=== PATIENT | male | born 1955 | race Caucasian/White ===

== ENCOUNTER 2024-05-23 11:30 | Day surgery (SDC) | payer MEDICARE, SELFPAY ==
[2024-05-23] VITALS (10 sets, daily range): BP systolic 138–175; BP diastolic 82–106; PULSE 69–127; RESP 16–18; TEMP 36.2–36.4; O2SAT 92–98; BMI 32.5
[2024-05-23] MEDS: Lactated Ringers 1,000 ML 15 ML IV (11:45)
[2024-05-23 12:28] LABS: Bedside Glucose 115 mg/dL (74-106)
--- NOTE | 2024-05-23 12:41 | PRE.ANES_ITS ---
ASA Classification* ASA Classification ASA Classification: 2 Assessment & Plan Anesthesia* Anesthesia Assessment Anesthesia Assessment: Discussed sedation and/or anesthesia options, risks, benefits, and alternatives with patient/parents/legal guardian/POA. Questions invited. The patient/parents/legal guardian/POA seems to understand and agrees to proceed with anesthesia plan. Reviewed the physical assessment, medical history, allergy history and patient home medications list prior to surgery/procedure/anesthetic and documented any changes. Performed airway and anesthesia risk assessments. Procedural Plan Procedural Plan:: Proceed w/ Anesthesia plan Anesthesia Type Anesthesia Type: General History Source History Obtained from:: Patient and Chart Anesthesia Focused Assessment* Temperature: 97.5 F Pulse Rate: 107 Blood Pressure: 146/97 Respiratory Rate: 16 Pulse Ox: 98 Oxygen Delivery Method: Room Air Airway Assessment Mouth opens: 2 cm Mallampati Score: II Teeth Condition: Caps/Crowns (Cap on Front Incisor Is Tight. Crowns on molars also take) and Missing (Few missing teeth) Neck Range of motion (ROM): Limited ROM Pertinent Findings EKG Pertinent Findings:: Eat April 17, 2024. Sinus tachycardia. Compared to EKG of August 08, 2023 no significant change. Focused Labs Anesthesia Preop lab: CBC CHEMISTRY POC Glucose 115 mg/dL (74-106) H 05/23/24 12:04 COAG Lab additional comments: April 17, 2024 hemoglobin is 14.7. platelets 328. PT is 11.4 INR is 1.0 Potassium is 4.3. Creatinine is 1.34. Globin A1c is 6.8. Pre-Assessment Diagnosis/Proposed Procedure Planned Operative Procedure(s): TURB WITH MITOMYCIN C INSTILLATION INTO BLADDER Anesthesia History Anesthesia History - dipper clock and watch hands: Anesthesia History - dipper clock and watch hands Hx Hospitalization No 05/14/24 12:09 Any Problems With Anesthesia No 05/14/24 12:09 Cholinesterase deficiency No 05/14/24 12:09 You/Your Family Experience No 05/14/24 12:09 fever (hyperthermia) with Relationship Recent Exposure to Contagious No 05/23/24 11:52 Disease Does patient have nerve No 05/14/24 12:09 stimulator Patient instructed to have device shut off --Does patient have Pacemaker No 05/23/24 11:52 or ICD? When Was Last Pacemaker Check QUESTION #4 FULL TEXT: You/Your Family Experience fever (hyperthermia) with Anesthesia Last Oral Intake Last Oral intake: Last Oral Intake NPO since 06:30 05/23/24 11:52 Meds taken in AM with sips of water? Meds patient instructed to take am of surgery Any additional information?: Yes NPO since: 06:30 Meds patient instructed to take am of surgery: Black coffee at 630 PONV PONV - dipper clock and watch hands: PONV - dipper clock and watch hands Female No 05/14/24 12:09 HX of Motion Sickness No 05/14/24 12:09 HX of N/V After Surgery No 05/14/24 12:09 Non-Smoker No 05/14/24 12:09 Duration of Surgery greater Yes 05/14/24 12:09 than 60 minutes Number of Risk Factors 1 05/14/24 12:09 PONV Score Low Risk 05/14/24 12:09 Height & Weight Height & Weight: Anesthesia: Height & Weight Height 5 ft 6 in 05/23/24 11:52 Weight: 91.626 kg 05/23/24 11:52 Body Mass Index (BMI) 32.5 05/23/24 11:52 Respiratory Assessment Respiratory Assessment - dipper clock and watch hands: Respiratory Tract Infection Hx - dipper clock and watch hands Hx Respiratory Tract Infection No 05/14/24 12:09 STOP Sleep Apnea STOP Sleep Apnea - dipper clock and watch hands: STOP Sleep Apnea - dipper clock and watch hands Hx Hypertension Yes: CONTROLLED WITH MED 05/14/24 12:09 Hx Sleep Apnea No 05/14/24 12:09 CPAP BIPAP Do you snore loudly (louder No 05/14/24 12:09 than talking or can be heard Do you often feel tired/ Yes 05/14/24 12:09 fatigued/ sleepy during daytime? Has anyone observed you stop No 05/14/24 12:09 breathing during sleep? STOP Results Positive 05/14/24 12:09 QUESTION #5 FULL TEXT : Do you snore loudly (louder than talking or can be heard through closed doors)? 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 Specify any problems Hx of Preganancy in last 3 N/A 05/14/24 12:09 Months Nurse Filling Out Transfusion DSCHRIBER 05/14/24 12:09 & Questions: Date: 05/14/24 05/14/24 12:09 Time: 12:11 05/14/24 12:09 Patient unable to answer at this time (ie. confused, unrespo /Reproduction History /Reproductive History - dipper clock and watch hands: /Reproductive Hx- dipper clock and watch hands Hx Now Gestational Age (in weeks): EDC: Hx Hx Para Hx Section SAB No 05/14/24 12:09 Active Medications Active Medications: Current Medications Generic Name Dose Route Start Last Admin Trade Name Freq PRN Reason Stop Dose Admin Cefazolin Sodium 2 gm/ Sodium 110 mls @ 150 mls/hr 05/23/24 13:50 Chloride IV 05/23/24 14:33 PREOP ONE Mitomycin 40 mg/ N/A 40 mls @ 2,400 mls/hr 05/23/24 13:50 INSTILLAT 05/23/24 13:51 X1 ONE Lactated Ringer's 1,000 mls @ 15 mls/hr 05/23/24 11:45 05/23/24 11:45 IV 15 mls/hr .Q48H DEVAN Administration PFSH Medical History Wears contact lenses Alcohol use Diabetes Arthritis Bladder disease Easy bruising Smoker Shortness of breath on exertion History of pain when walking History of echocardiogram History of stress test Hypertension Home Medications ?Medication ?Instructions ?Recorded ?Last Taken ?Type atorvastatin 20 mg tablet 20 mg PO QHS 04/11/24 Unknown History guaifenesin 600 mg tablet, 600 mg PO BID PRN congestion 04/11/24 Unknown History extended release 12 hr (Mucinex) lisinopril 20 1 tab PO DAILY 04/11/24 05/22/24 History mg-hydrochlorothiazide 12.5 mg tablet metformin 1,000 mg tablet 1,000 mg PO BID 04/11/24 Unknown History semaglutide 14 mg tablet (Rybelsus) 14 mg PO DAILY 04/11/24 05/12/24 History tamsulosin 0.4 mg capsule 0.4 mg PO QHS 04/11/24 Unknown History ciprofloxacin HCl 500 mg tablet 500 mg PO BID #10 tabs 05/23/24 Unknown Rx (Cipro) ibuprofen 600 mg tablet 600 mg PO Q6H PRN fever or pain 05/23/24 Unknown Rx #20 tabs Allergy/AdvReac Type Severity Reaction Status Date / Time No Known Allergies Allergy Verified 05/23/24 11:51 Surgical History Hx of colonoscopy Social History Smoking Status: Current every day smoker tobacco type: cigarettes Review of Systems (Anesthesia) ROS Narrative System reviewed and no additional complaints, except as documented. Physical Exam Skin General Skin Exam: ecchymosis Neuro oriented x3
--- NOTE | 2024-05-23 12:43 | PCM.HP.STD ---
HPI - General General Date of Service: 05/23/24 Chief Complaint: Large bladder tumor HPI Narrative JUAN CARLOS AMIN, is a 68 M who presents for resection of a large bladder tumor instillation of Mitomycin-C postop [facility] Medical History Wears contact lenses Alcohol use Diabetes Arthritis Bladder disease Easy bruising Smoker Shortness of breath on exertion History of pain when walking History of echocardiogram History of stress test Hypertension Home Medications ?Medication ?Instructions ?Recorded ?Last Taken ?Type atorvastatin 20 mg tablet 20 mg PO QHS 04/11/24 Unknown History guaifenesin 600 mg tablet, 600 mg PO BID PRN congestion 04/11/24 Unknown History extended release 12 hr (Mucinex) lisinopril 20 1 tab PO DAILY 04/11/24 05/22/24 History mg-hydrochlorothiazide 12.5 mg tablet metformin 1,000 mg tablet 1,000 mg PO BID 04/11/24 Unknown History semaglutide 14 mg tablet (Rybelsus) 14 mg PO DAILY 04/11/24 05/12/24 History tamsulosin 0.4 mg capsule 0.4 mg PO QHS 04/11/24 Unknown History Allergy/AdvReac Type Severity Reaction Status Date / Time No Known Allergies Allergy Verified 05/23/24 11:51 Surgical History Hx of colonoscopy Social History Smoking Status: Current every day smoker tobacco type: cigarettes Vital Signs Vital Signs Vital Signs: 05/23/24 11:52 05/23/24 11:52 Temperature 97.5 F L Temperature Source Temporal Pulse Rate 107 H Respiratory Rate 16 Respiratory Pattern Normal Blood Pressure 146/97 H Blood Pressure Mean 113 Blood Pressure Source Monitor Blood Pressure Position Sitting Blood Pressure Location Right Arm Pulse Ox 98 Oxygen Delivery Method Room Air Weight Weight: 91.626 kg Body Mass Index (BMI) 32.5 Results Lab / Micro Data Labs: Laboratory Results - last 24 hr 05/23/24 12:04: POC Glucose 115 H
--- NOTE | 2024-05-23 12:45 | PCM.DC ---
Discharge Instructions Diet Discharge Diet: No restrictions Activity Discharge Activity: Return to Normal Activity and May Not Drive (while taking narcotic pain medications.) Dressing / Incision Call your doctor if you observe: Fever of 101 or Higher Follow Up Care Please Follow Up With: Lev Dickinson MD When: Call [phone] for an appointment Test Results: Test results from this visit will be discussed in further detail at your follow-up appointment, if applicable. Discharge Plan Admission Primary Reason for Your Visit: bladder tumor resection Attending Provider: Lev Dickinson Primary Care Provider: LOUIS RODRIGUEZ Instructions Print Language: Barbadian Discharge Orders/Prescriptions Prescriptions: New ciprofloxacin HCl [Cipro] 500 mg tablet 500 mg PO BID Qty: 10 0RF ibuprofen 600 mg tablet 600 mg PO Q6H PRN (Reason: fever or pain) Qty: 20 0RF No Action Rybelsus 14 mg tablet 14 mg PO DAILY lisinopril-hydrochlorothiazide 20-12.5 mg tablet 1 tab PO DAILY metformin 1,000 mg tablet 1,000 mg PO BID tamsulosin 0.4 mg capsule 0.4 mg PO QHS atorvastatin 20 mg tablet 20 mg PO QHS guaifenesin [Mucinex] 600 mg tablet extended release 12hr 600 mg PO BID PRN (Reason: congestion) Referrals / Follow Up: LOUIS RODRIGUEZ [Other] Lev Dickinson MD [Med Staff - Active Staff] - Disposition Disposition (needs filled in before D/C Order can be placed): Home, Self Care
--- NOTE | 2024-05-23 13:50 | BLB_PTH ---
PATIENT: JUAN CARLOS AMIN LOC: [facility] – [place] U#:[id number] AGE/SX: 68/M ROOM: RE05/23/[address]: Dr. Lev Dickinson MD : [id number] BED: DIS: 05/23/2024 SPEC #: [id number] RECD: 05/23/24 17:19 STATUS: MARCOS BLANCA #: [id number] GABRIELLA: 05/23/24 13:[address]: Lev Dickinson DEPT: SURGICAL PATHOLOGY RECD BY: Brianna Meyers Tissues: Urinary bladder, NOS Procedures: Surgery Specimen Level V HEADER OPERATION: Cytso,transurethral resection bladder tumor PRE-OP DIAGNOSIS: Large bladder tumor TISSUE SUBMITTED: Bladder tumor MICROSCOPIC DIAGNOSIS Urinary bladder tumor, transurethral resection: Papillary urothelial carcinoma, noninvasive. See cancer summary in the comment section. 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 MICROSCOPIC DESCRIPTION Slides are reviewed. GROSS DESCRIPTION Received in fixative is one container labeled with the patient's name and designated Bladder tumor. The specimen consists of multiple irregular fragments of monahan-brown soft tissue that in aggregate measure 2.0 x 1.0 x 0.2 cm. The specimen is totally submitted in one cassette. Nely 05/24/2024 TC:0 CPT:23094
[2024-05-23] MEDS: Cefazolin 2 GM in 0.9% Normal Saline (100mL Bag) 100 ML IV (14:08)
[2024-05-23] MEDS: MitoMYcin 40 MG in Syringe 1 EACH 2400 MG INSTILLAT (14:57)
--- NOTE | 2024-05-23 15:00 | OP.PCM_ITS ---
Report of Operation Date of Procedure: 05/23/24 Pre-Operative Diagnosis: Bladder cancer bladder tumors multiple sites large Post-Operative Diagnosis: The same Surgery/Procedure Performed:: Transurethral resection of large multiple bladder tumors and instillation of Mitomycin-C Description of Surgical Findings:: Indication is a 68-year-old male who has been having gross hematuria on cystoscopy is found to have multiple tumors in the bladder and multiple locations he had a tumor next to the bladder neck on the right side bladder neck and the left side lateral wall and also anterior wall and measuring all these tumor sites by total measurement about 5 cm by side 7 cm x 1 cm. So very large tumor occupying many locations in the bladder and multifocal. Took the patient back to the operating room and can and proceeded with the resection I placed in dorsolithotomy position penis and testicles were prepped and draped in usual sterile fashion went in the bladder with 21 Taiwanese rigid cystourethroscope identified all the tumors as mentioned above, I then went in with a 24 Taiwanese continuous-flow resectoscope and started resecting and cauterizing the all these tumors as listed above extensively took a long time to get all these tumors had to resect the lateral wall bladder neck left and right bladder neck anterior wall and dome the nurse at the put a lot of pressure down in the bladder to get the dome into view and at the extensively resect all this. At the end I could not see any more tumors visible he definitely get any BCG therapy to treat his bladder since he has multifocal large tumors in the bladder. I will put a catheter bladder irrigated out the catheter and then put Mitomycin-C post resection dose in the bladder which to be held for 1 hour. Patient anesthetic was reversed taken back to PACU in good condition. Surgeon: Lev Dickinson Type of Anesthesia: General Admit VTE Documentation VTE Present on Admission: No VTE Mechan Device Prophylaxis: SCD's VTE Pharm Prophylaxis ordered?: No
--- NOTE | 2024-05-23 15:10 | PCM.POST.ANE ---
Anesthesia: Postop Eval I Current Vital Signs Temperature: 97.6 F Pulse Rate: 117 Blood Pressure: 171/82 Respiratory Rate: 18 Pulse Ox: 94 Oxygen Delivery Method: Nasal Cannula Oxygen Flow Rate (L/min): 4 Assessment Airway patent: Yes Spontaneous unlabored respirations: Yes Mental status: Awake nausea: No Vomiting: No Anesthesia Complication: No Fluid Hydration Crystalloid volume administer (ml): 1,000 Total IV fluid infused: 1,000 Progress Note Anesthesia document: Postop Eval 1 completed: Yes
[2024-05-23] MEDS: Ketorolac 15 MG/ML Vial IV (15:25)
--- NOTE | 2024-05-23 16:09 | POSTOPAN2_ITS ---
Anesthesia Postop Eval I Sum Postop Eval Completion status Anesthesia document: Postop Eval 1 completed: Yes Anesthesia Postop Eval I Summary Anesthesia Postop Eval I Summary: Anesthesia Postop Eval I: Assessment Summary Airway patent Yes 05/23/24 15:11 ACCOUNTANT [email or web address] Spontaneous unlabored Yes 05/23/24 15:11 ACCOUNTANT SUPERVISOR.CSIR respirations Mental status Awake 05/23/24 15:11 ACCOUNTANT SUPERVISOR.CSIR nausea No 05/23/24 15:11 ACCOUNTANT SUPERVISOR.CSIR Vomiting No 05/23/24 15:11 ACCOUNTANT SUPERVISOR.CSIR Anesthesia Postop Eval I: Fluid Summary Crystalloid volume administer 1,000 05/23/24 15:11 ACCOUNTANT SUPERVISOR.CSIR (ml) Colloids volume administered ( ml) Blood Product volume administered (ml) Total IV fluid infused 1,000 05/23/24 15:11 ACCOUNTANT SUPERVISOR.CSIR Anesthesia Postop Eval I: Summary Notes Anesthesia Complication No 05/23/24 15:11 ACCOUNTANT SUPERVISOR.CSIR Anesthesia Complication Comment: Post-operative progress note Anesthesia: Postop Eval II Evaluation Mental status: Awake and Calm Pain Level: 2 nausea: No Vomiting: No Complications Anesthesia Complication: No
--- NOTE | 2024-05-23 16:09 | PCM.POSTANE2 ---
Anesthesia Postop Eval I Sum Postop Eval Completion status Anesthesia document: Postop Eval 1 completed: Yes Anesthesia Postop Eval I Summary Anesthesia Postop Eval I Summary: Anesthesia Postop Eval I: Assessment Summary Airway patent Yes 05/23/24 15:11 SCREENING NURSE.CSIR Spontaneous unlabored Yes 05/23/24 15:11 SCREENING NURSE.CSIR respirations Mental status Awake 05/23/24 15:11 SCREENING NURSE.CSIR nausea No 05/23/24 15:11 SCREENING NURSE.CSIR Vomiting No 05/23/24 15:11 SCREENING NURSE.CSIR Anesthesia Postop Eval I: Fluid Summary Crystalloid volume administer 1,000 05/23/24 15:11 SCREENING NURSE.CSIR (ml) Colloids volume administered ( ml) Blood Product volume administered (ml) Total IV fluid infused 1,000 05/23/24 15:11 SCREENING NURSE.CSIR Anesthesia Postop Eval I: Summary Notes Anesthesia Complication No 05/23/24 15:11 SCREENING NURSE.CSIR Anesthesia Complication Comment: Post-operative progress note Anesthesia: Postop Eval II Evaluation Mental status: Awake and Calm Pain Level: 2 nausea: No Vomiting: No Complications Anesthesia Complication: No
[2024-05-23] MEDS: oxyCODONE 5 MG Tablet PO (16:21)
== END 2024-05-23 17:53 | disposition home or self-care (01) ==
LOC: SDC 11:33 → AC 11:35
PROVIDERS: Referring Provider Urology; Visit Provider Urology
PROC: 0T5B8ZZ Destruction of Bladder, Via Natural or Artificial Opening Endoscopic (ICD-10-PCS; CPT 51720; principal; 2024-05-23 13:40)
DX: C67.9 Malignant neoplasm of bladder, unspecified (principal); E11.9 Type 2 diabetes mellitus without complications; I10 Essential (primary) hypertension; F17.210 Nicotine dependence, cigarettes, uncomplicated; Z79.899 Other long term (current) drug therapy; Z79.84 Long term (current) use of oral hypoglycemic drugs
CPT/HCPCS: 52240; 00912; 82962; 88307; J7120; J9280; A4216; J2405